=== PATIENT | female | born 1995 | race Two or more races ===

== ENCOUNTER 2016-07-09 10:15 | Emergency (ER) | payer MEDICAID ==
[~2016-07-09] VITALS: Ht 157.5 cm; Wt 68.2 kg
[~2016-07-09 10:15] MED LIST: IBUP600 PO; OXYC1SOL5 PO; PERI8.6T PO; PRENCAP6 PO
[2016-07-09 10:16] VITALS: BP 119/69; PULSE 94; RESP 16; TEMP 98.5; O2SAT 98
[2016-07-09] MEDS ORDERED: PANTOPRAZOLE SODIUM 40 MG VIAL IVP ONE (11:00)
--- NOTE | 2016-07-09 11:01 | PD ---
HPI Chief Complaint: Abdominal Pain Time Seen by Provider: 10:48 Travel History International Travel<30 days: No Contact w/Intl Traveler<30days: No Traveled to known affect area: No History of Present Illness HPI 20-year-old female complains of left-sided abdominal pain. Patient states the pain started 3 days ago has been persistent since then. Patient states the pain is sharp pain cramping pain localized to left side abdomen. Patient denies any pain radiation. Patient states the pain is worse with walking. Patient denies any nausea vomiting diarrhea. Patient states that she started having dysuria this morning. Patient denies any fever chills. Patient denies any back pain. Patient denies any vaginal discharge or bleeding. PFSH Past Medical History Medical History: Denies Significant Hx Diminished Hearing: No ?: Not LMP: 06/10/2016 : 2 Para: 2 Past Surgical History Surgical History: No Previous Surgery Social History Alcohol Use: No Tobacco Use: No Substance Use: No Allergies-Medications (Allergen,Severity, Reaction): Coded Allergies: No Known Allergies (Unverified , 07/09/16) Reported Meds & Prescriptions Reported Meds & Active Scripts Active No Active Prescriptions or Reported Medications Review of Systems General / Constitutional: No: Fever Eyes: No: Visual changes HENT: No: Headaches Cardiovascular: No: Chest Pain or Discomfort Respiratory: No: Shortness of Breath Gastrointestinal: Positive: Abdominal Pain Genitourinary: No: Dysuria Musculoskeletal: No: Pain Skin: No Rash Neurologic: No: Weakness Psychiatric: No: Depression Endocrine: No: Polydipsia Hematologic/Lymphatic: No: Easy Bruising Physical Exam Narrative GENERAL: Well-nourished, well-developed patient. SKIN: Warm and dry. HEAD: Normocephalic. EYES: No scleral icterus. No injection or drainage. NECK: Supple, trachea midline. No JVD or lymphadenopathy. CARDIOVASCULAR: Regular rate and rhythm without murmurs, gallops, or rubs. RESPIRATORY: Breath sounds equal bilaterally. No accessory muscle use. GASTROINTESTINAL: Abdomen soft, nondistended. Patient has mild tenderness on palpation left upper quadrant of the abdomen. No rebound tenderness. No mass. MUSCULOSKELETAL: No cyanosis, or edema. BACK: Nontender without obvious deformity. No CVA tenderness. Neurologic exam normal. Data Data Last Documented VS Vital Signs Date Time Temp Pulse Resp B/P Pulse Ox O2 Delivery O2 Flow Rate FiO2 07/09/16 11:13 76 18 112/63 100 Room Air 07/09/16 10:16 98.5 Orders Complete Blood Count With Diff (07/09/16 10:58) Comprehensive Metabolic Panel (07/09/16 10:58) Lipase (07/09/16 10:58) Urinalysis - C+S If Indicated (07/09/16 10:58) Ct Abd/Pel W Iv Contrast(Rout) (07/09/16 10:58) Iv Access Insert/Monitor (07/09/16 10:58) Ecg Monitoring (07/09/16 10:58) Oximetry (07/09/16 10:58) Pantoprazole Inj (Protonix Inj) (07/09/16 11:00) Ed Urine Pregnancytest Poc (07/09/16 10:58) Iohexol 350 Inj (Omnipaque 350 Inj) (07/09/16 12:50) Labs Laboratory Tests Test 07/09/16 11:05 White Blood Count 7.3 TH/MM3 Red Blood Count 5.43 MIL/MM3 Hemoglobin 14.2 GM/DL Hematocrit 43.4 % Mean Corpuscular Volume 80.0 FL Mean Corpuscular Hemoglobin 26.2 PG Mean Corpuscular Hemoglobin 32.8 % Concent Red Cell Distribution Width 14.6 % Platelet Count 254 TH/MM3 Mean Platelet Volume 9.0 FL Neutrophils (%) (Auto) 59.4 % Lymphocytes (%) (Auto) 32.3 % Monocytes (%) (Auto) 7.0 % Eosinophils (%) (Auto) 1.2 % Basophils (%) (Auto) 0.1 % Neutrophils # (Auto) 4.3 TH/MM3 Lymphocytes # (Auto) 2.4 TH/MM3 Monocytes # (Auto) 0.5 TH/MM3 Eosinophils # (Auto) 0.1 TH/MM3 Basophils # (Auto) 0.0 TH/MM3 CBC Comment DIFF FINAL Differential Comment Urine Color LIGHT-YELLOW Urine Turbidity CLEAR Urine pH 7.5 Urine Specific [place] 1.009 Urine Protein NEG mg/dL Urine Glucose (UA) NEG mg/dL Urine Ketones NEG mg/dL Urine Occult Blood NEG Urine Nitrite NEG Urine Bilirubin NEG Urine Urobilinogen LESS THAN 2.0 MG/DL Urine Leukocyte Esterase SMALL Urine RBC LESS THAN 1 /hpf Urine WBC 1 /hpf Urine Squamous Epithelial 1 /hpf Cells Urine Bacteria OCC /hpf Urine Mucus MANY /lpf Microscopic Urinalysis Comment CULT NOT INDICATED Sodium Level 140 MEQ/L Potassium Level 3.8 MEQ/L Chloride Level 108 MEQ/L Carbon Dioxide Level 25.1 MEQ/L Anion Gap 7 MEQ/L Blood Urea Nitrogen 5 MG/DL Creatinine 0.58 MG/DL Estimat Glomerular Filtration 133 ML/MIN Rate Random Glucose 84 MG/DL Calcium Level 8.9 MG/DL Total Bilirubin 0.2 MG/DL Aspartate Amino Transf 12 U/L (AST/SGOT) Alanine Aminotransferase 26 U/L (ALT/SGPT) Alkaline Phosphatase 92 U/L Total Protein 8.1 GM/DL Albumin 3.7 GM/DL Lipase 161 U/L [facility] Medical Decision Making Medical Screen Exam Complete: Yes Emergency Medical Condition: Yes Interpretation(s) [address] scan abdomen pelvis show no acute pathology. CBC within normal limit. CMP within normal limit. UA is negative. Urine test negative. Differential Diagnosis Differential diagnosis including gastritis, PUD, pancreatitis, cholecystitis, colitis, UTI, pyelonephritis, nephrolithiasis. Narrative Course 20-year-old female with left low quadrant abdominal pain. Protonix 40 mg IV given. Diagnosis Primary Impression: Gastritis Qualified Code: K29.00 - Acute gastritis without hemorrhage, unspecified gastritis type Patient Instructions: General Instructions Additional Instructions: Medications as directed. Follow-up with GI specialist and personal physician. Return if worse. Med/Other Pt SpecificInfo: Prescription(s) given Scripts Dicyclomine (Bentyl)20 Mg Tab20 Mg PO TID #21 TAB Ref 0 Prov:Madhu Cee MD 07/09/16 Sucralfate (Carafate)1 Gm Tab1 Gm PO QID #120 TAB On empty stomach Prov:Madhu Cee MD 07/09/16 Pantoprazole (Protonix)20 Mg Tab20 Mg PO DAILY #30 TAB Prov:Madhu Cee MD 07/09/16 Disposition: 01 DISCHARGE HOME Condition: Stable Madhu Cee MD Jul 09, 2016 11:01
[2016-07-09 11:11] VITALS: RESP 18; O2SAT 99
[2016-07-09 11:13] VITALS: BP 112/63; PULSE 76; RESP 18; O2SAT 100
[2016-07-09 11:28] LABS: AUTOMATED NEUTROPHIL # 4.3 TH/MM3 (1.8-7.7); BACTERIA, URINE OCC /hpf; BASOPHIL % 0.1 % (0.0-2.0); BLOOD, URINE NEG (NEG); COMMENT (UR) CULT NOT INDICATED; CULTURE IF INDICATED CULT NOT INDICATED; EOSINOPHIL # 0.1 TH/MM3 (0-0.4); EOSINOPHIL % 1.2 % (0.0-4.0); GLUCOSE,URINE NEG (NEG); HEMATOCRIT 43.4 % (35.0-46.0); HEMO FLAGS DIFF FINAL; KETONE, URINE NEG (NEG); LYMPH % 32.3 % (9.0-44.0); LYMPHOCYTE # 2.4 TH/MM3 (1.0-4.8); MEAN CORPUSCULAR HEMOGLOBIN 26.2 PG (27.0-34.0); MEAN CORPUSCULAR HGB CONC 32.8 % (32.0-36.0); MUCUS URINE MANY /lpf (OCC); NEUT % 59.4 % (16.0-70.0); NITRITE,URINE NEG (NEG); PH, URINE 7.5 (5.0-8.5); PLATELET COUNT 254 TH/MM3 (150-450); RED BLOOD COUNT 5.43 MIL/MM3 (4.00-5.30); RED CELL DISTRIBUTION WIDTH 14.6 % (11.6-17.2); SQUAMOUS EPITHELIAL CELL URINE 1 /hpf (0-5); URINE COLOR LIGHT-YELLOW (YELLW/STRAW); WHITE BLOOD COUNT 7.3 TH/MM3 (4.0-11.0)
[2016-07-09 11:42] LABS: ALT (GPT) 26 U/L (9-42); ANION GAP 7 MEQ/L (5-15); AST (GOT) 12 U/L (16-38); BICARBONATE 25.1 MEQ/L (21.0-32.0); BLOOD UREA NITROGEN 5 MG/DL (7-18); CHLORIDE 108 MEQ/L (98-107); GLOMERULAR FILTRATION RATE 133 ML/MIN (>89); POTASSIUM 3.8 MEQ/L (3.5-5.1); SODIUM (NA) 140 MEQ/L (136-145)
[2016-07-09 11:44] LABS: ALKALINE PHOSPHATASE 92 U/L (45-117); TOTAL BILIRUBIN ADULT 0.2 MG/DL (0.2-1.0)
[2016-07-09] MEDS ORDERED: IOHEXOL 350 MG/ML 10 ML VIAL (for RAD DIAG) IV ONE (12:50)
--- NOTE | 2016-07-09 13:08 | RADRPT ---
EXAM DATE/TIME: 07/09/2016 12:39 [facility] COMPARISON: CT ABDOMEN & PELVIS W CONTRAST, February 02, 2014, 21:12. INDICATIONS : Left upper quadrant pain for 3 days. IV CONTRAST: 90 cc Omnipaque 350 (iohexol) IV ORAL CONTRAST: No oral contrast ingested. RADIATION DOSE: 9.96 CTDIvol (mGy) MEDICAL HISTORY : None SURGICAL HISTORY : None. ENCOUNTER: Initial ACUITY: 3 days PAIN SCALE: 5/10 LOCATION: Left upper quadrant TECHNIQUE: Volumetric scanning of the abdomen and pelvis was performed. Using automated exposure control and ad justment of the mA and/or kV according to patient size, radiation dose was kept as low as reasonably achievable to obtain optimal diagnostic quality images. FINDINGS: Examination of the lung bases demonstrates no abnormality. No pleural fluid is identified. No pulmona ry nodules are present. The liver and spleen are normal in size and no focal defects are identified. The gallbladder and pancreas are unremarkable. No intrahepatic or extrahepatic ductal dilatation is s een. The adrenal glands are unremarkable. The right kidney is unremarkable. There is a single simple cyst in the left kidney measuring 15 mm in the midpole. There is a small amount of free fluid in the pelvis the physiologic range. There is diverticulosis wi thout evidence of diverticulitis. No adnexal masses are identified. Examination of the right lower qu adrant demonstrates no abnormality. The appendix is identified and appears normal. CONCLUSION: 1. No evidence of acute abdominal or pelvic process. No masses are identified. 2. Diverticulosis without evidence of diverticulitis. Star Platt MD on July 09, 2016 at 13:01 Board Certified Radiologist. This report was verified electronically.
[2016-07-09] MEDS ORDERED: PANT20 PO (13:27)
[2016-07-09] MEDS ORDERED: BENT20TA PO (13:27)
[2016-07-09] MEDS ORDERED: CARA1TAB6 PO (13:27)
[2016-07-09 13:35] VITALS: BP 109/69; PULSE 73; RESP 18; O2SAT 99
== END 2016-07-09 13:50 | disposition home or self-care (01) ==
LOC: NEPA 10:15
DX: K29.00 Acute gastritis without bleeding (principal); R30.0 Dysuria
CPT/HCPCS: 74177; 80053; 81001; 83690; 84703; 85025; 96374; 99284; C9113; Q9967